=== PATIENT | female | born 1980 | race Caucasian/White ===

== ENCOUNTER 2019-03-03 06:19 | Emergency (ER) | payer OTHER ==
[2019-03-03 06:29] VITALS: BP 113/75
--- NOTE | 2019-03-03 07:13 | ED Physician Documentation ---
PD HPI HEADACHE - Stated complaint Stated Complaint: GAYLE - Chief complaint Chief Complaint: Neuro - History obtained from History obtained from: Patient - History of Present Illness Timing - onset: Enter time (14:00), Yesterday Timing - onset during: Light activity Timing - details: Gradual onset, Constant, Waxing and waning Pain level now: 7 Worst headache ever?: No: Worst headache ever? Location: Right Quality: Throbbing Associated symptoms: Nausea. No: Fever, Stiff neck, Vomiting, Weakness, Numbness, Vision changes Improved by: Rest, Dark room Worsened by: Light, Noise Similar symptoms before: Diagnosis (c/w previous migraine headaches) Recently seen: Not recently seen - Additional information Additional information: visiting [facility]. c/o right-sided headache c/w previous migraine headaches. No relief w/ home medications Review of Systems Constitutional: denies: Fever, Chills, Sweats Eyes: reports: Photophobia. denies: Loss of vision, Decreased vision GI: reports: Nausea. denies: Abdominal Pain, Vomiting Musculoskeletal: denies: Neck pain Neurologic: reports: Headache. denies: Focal weakness, Numbness PD PAST MEDICAL HISTORY - Past Medical History Past Medical History: Yes Neuro: Migraines - Past Surgical History Past Surgical History: Yes Ortho: Spine surgery - Present Medications Home Medications: Ambulatory Orders Medication Instructions Recorded Confirmed Divalproex Sodium [Depakote ER] 500 mg PO DAILY 03/03/19 03/03/19 Ondansetron Odt [Zofran Odt] 4 mg PO DAILY PRN 03/03/19 03/03/19 Prochlorperazine Maleate 10 mg PO Q6HR PRN 03/03/19 03/03/19 [Compazine] Rizatriptan Benzoate [Maxalt] 10 mg PO DAILY PRN 03/03/19 03/03/19 Rizatriptan Benzoate [Rizatriptan] 10 mg PO PRN PRN 03/03/19 03/03/19 - Allergies Allergies/Adverse Reactions: Allergies Allergy/AdvReac Type Severity Reaction Status Date / Time clindamycin Allergy Hives Verified 03/03/19 06:37 - Living Situation Living Arrangement: reports: At home PD ED PE NORMAL - Vitals Vital signs reviewed: Yes - General General: Alert and oriented X 3, Well developed/nourished, Other (appears uncomfortable; wearing sunglasses in darkened room) - HEENT HEENT: PERRL, EOMI - Neck Neck: Supple, no meningeal sign - Cardiac Cardiac: RRR, No murmur - Respiratory Respiratory: No respiratory distress, Clear bilaterally - Neuro Neuro: Alert and oriented X 3, commercial estimator 2-12 intact, No motor deficit, No sensory deficit, Normal speech Eye Opening: Spontaneous Motor: Obeys Commands Verbal: Oriented GCS Score: 15 Results - Vitals Vitals: Vital Signs - 24 hr 03/03/19 06:25 Temperature 36.8 C Heart Rate 72 Respiratory 16 Rate Blood Pressure 113/75 O2 Saturation 98 Oxygen O2 Source Room air PD MEDICAL DECISION MAKING - ED course Complexity details: reviewed results, considered differential, d/w patient ED course: On reevaluation after IM toradol 60mg, PO zofran 8mg, and benadryl 25mg PO, patient reports significant symptomatic relief and feels ready for discharge. Declines further medication and declines rx, says she has adequate medications at home at this time. Departure - Departure Disposition: 01 Home, Self Care Clinical Impression: Migraine Qualifiers: Migraine type: unspecified Status migrainosus presence: with status migrainosus Intractability: not intractable Qualified Code(s): G43.901 - Migraine, unspecified, not intractable, with status migrainosus Condition: Good Health Concerns: migraine headache Plan of Treatment: discharge home, return if worse Care Goals: symptom control Assessment: see diagnosis Instructions: ED Headache Migraine Discharge Date/Time: 03/03/19 09:34
[2019-03-03] MEDS ORDERED: ONDANSETRON ODT 4 MG TABLET TL STA (07:24)
[2019-03-03] MEDS ORDERED: KETOROLAC 60 MG/2 ML VIAL IM STA (07:24)
[2019-03-03] MEDS ORDERED: diphenhydrAMINE 25 MG CAPSULE PO STA (07:25)
== END 2019-03-03 09:34 | disposition home or self-care (01) ==
LOC: ED 06:19
DX: G43.901 Migraine, unspecified, not intractable, with status migrainosus (principal)
CPT/HCPCS: 96372; 99282; 99283; A9270; Q0162